=== PATIENT | female | born 1970 | race Caucasian/White ===

== ENCOUNTER 2017-05-11 09:57 | Emergency (ER) | payer SELFPAY ==
[2017-05-11 10:10] VITALS: BP 131/91
--- NOTE | 2017-05-11 11:16 | CR ---
Right humerus: Two views of the right humerus were obtained. Comparison: No previous humerus exam. No fracture or other abnormality is seen. Impression: 1. No abnormality is seen on two-view right humerus study. Diagnostic code #1
--- NOTE | 2017-05-11 11:22 | CR ---
Right shoulder: Single Y scapular view was obtained. No dislocation is seen. No fracture or other abnormality is seen. Impression: 1. Unremarkable Y scapular view. Diagnostic code #1
[2017-05-11] MEDS ORDERED: Ketorolac 60 MG/2 ML SDV IM ONE (11:28)
--- NOTE | 2017-05-11 11:40 | EDM.PDOC ---
ED HPI GENERAL MEDICAL PROBLEM - General Chief Complaint: Upper Extremity Injury/Pain Stated Complaint: ARM INJURY Time Seen by Provider: 05/11/17 10:55 Source of Information: Reports: Patient History Limitations: Reports: No Limitations - History of Present Illness INITIAL COMMENTS - FREE TEXT/NARRATIVE: 46-year-old female presents for evaluation and treatment of right arm pain. Patient reports 2 days ago she slipped on some ice. She states that her arm went back behind her. She states that her leg went to her side. She reports that since the fall she has been walking but reports pain to her right shoulder , right humerus, neck and back. She does have chronic neck and back pain. No numbness or tingling to the arm. Reports significant pain to the arm. States that she is having trouble sleeping due to the pain. She has been taking Tylenol and Motrin with no relief. Patient is left-handed. Patient denies hitting her head. No syncope. Duration: Day(s): (2) Location: Reports: Upper Extremity, Right Right Upper Arm Pain Score (Numeric/FACES): 9 - Related Data Allergies Allergy/AdvReac Type Severity Reaction Status Date / Time No Known Allergies Allergy Verified 05/11/17 10:10 Home Meds: Home Meds Ibuprofen [IJD: Ibuprofen] 600 mg PO Q4H PRN #0 tablet 11/10/15 [Rx] Ibuprofen 600 mg PO Q6HR PRN #20 tablet 05/11/17 [Rx] Orphenadrine [Norflex] 100 mg PO BID PRN #20 tab.er 05/11/17 [Rx] Past Medical History - Past Health History Medical/Surgical History: Denies Medical/Surgical History Genitourinary History: Reports: Other (See Below) Other Genitourinary History: bladder lift with mesh 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 Social & Family History - Family History Family Medical History: Noncontributory Endocrine/Metabolic: Reports: Diabetes, type II Oncologic: Reports: Breast, Colon, Uterine - Tobacco Use Smoking Status *Q: Never Smoker Second Hand Smoke Exposure: Yes - Caffeine Use Caffeine Use: Reports: Coffee - Recreational Drug Use Recreational Drug Use: Yes Drug Use in Last 12 Months: No Recreational Drug Last Use: 20 years ago - Living Situation & Occupation Living situation: Reports: Single, Other Occupation: Unemployed Review of Systems - Review of Systems Review Of Systems: See Below Musculoskeletal: Reports: Neck Pain, Shoulder Pain (right ), Arm Pain (right), Back Pain Neurological: Denies: Numbness, Syncope, Tingling ED EXAM, GENERAL - Physical Exam Exam: See Below Exam Limited By: No Limitations General Appearance: Alert, WD/WN, No Apparent Distress, Obese Eye Exam: Bilateral Eye: Normal Inspection Nose: Normal Inspection Throat/Mouth: Normal Inspection, Normal Voice, No Airway Compromise Head: Atraumatic, Normocephalic Neck: Normal Inspection, Supple, Full Range of Motion, Tender Midline Respiratory/Chest: No Respiratory Distress, Lungs Clear, Normal Breath Sounds Cardiovascular: Normal Peripheral Pulses, Regular Rate, Rhythm, No Murmur Peripheral Pulses: 2+: Radial (L), Radial (R), Dorsalis Pedis (L), Dorsalis Pedis (R) Back Exam: Normal Inspection, Vertebral Tenderness (reports tenderness to palpation along the entire spine) Extremities: Normal Inspection, Normal Capillary Refill, Limited Range of Motion (unable to move right shoulder due to pain), Other (reports tenderness to palpation to the right proximal humerus, right shoulder, right scapula and right clavicle; no obvious deformities appreciated) Neurological: Alert, Oriented, Normal Cognition Psychiatric: Normal Affect, Normal Mood Skin Exam: Warm, Dry, Normal Color. No: Ecchymosis, Erythema Course - Vital Signs Last Recorded V/S: Last Vital Signs Temp 35.6 C 05/11/17 10:03 Pulse 100 05/11/17 10:03 Resp 18 05/11/17 10:03 BP 131/91 H 05/11/17 10:03 Pulse Ox 97 05/11/17 10:03 - Orders/Labs/Meds Meds: Medications Discontinued Medications Generic Name Dose Route Start Last Admin Trade Name Freq PRN Reason Stop Dose Admin Ketorolac Tromethamine 60 mg 05/11/17 11:28 05/11/17 11:32 Toradol IM 05/11/17 11:29 60 mg ONETIME ONE Administration - Radiology Interpretation Free Text/Narrative:: Cervical spine: AP, lateral, odontoid in swimmers views of the cervical spine were obtained. Disc space narrowing is noted at C5-C6 with posterior spurring and large anterior osteophytes. Lesser disc space narrowing is noted at C6-C7. Degenerative spurring is noted within the uncovertebral joints at C5-C6 on the left side and at C6-C7 on the right side. Vertebral body heights are maintained. No discrete fracture or other abnormality is appreciated. Impression: 1. Degenerative change as noted above. Nothing acute is appreciated on 4 view cervical spine study. Right humerus: Two views of the right humerus were obtained. Comparison: No previous humerus exam. No fracture or other abnormality is seen. Impression: 1. No abnormality is seen on two-view right humerus study. Right shoulder: Single Y scapular view was obtained. No dislocation is seen. No fracture or other abnormality is seen. Impression: 1. Unremarkable Y scapular view. - Re-Assessments/Exams Free Text/Narrative Re-Assessment/Exam: 05/11/17 13:00 I reviewed the xray results with the patient. I believe this is just soft tissue injury. Will give norflex and ibuprofen for pain. Reviewed previous ER records she has been seen on multiple occasions for low back pain and has had MRI. No etiology found. Will discharge home at this time. Discharge instructions as documented. Departure - Departure Time of Disposition: 13:03 Disposition: Home, Self-Care 01 Condition: Fair Clinical Impression: Chronic back pain, Fall, Arm pain, right - Discharge Information Prescriptions: Ibuprofen 600 mg PO Q6HR PRN #20 tablet PRN Reason: Pain Orphenadrine [Norflex] 100 mg PO BID PRN #20 tab.er PRN Reason: Muscle Spasm Instructions: Shoulder Pain Referrals: Ingrid Conway PA-C [Primary Care Provider] - Forms: ED Department Discharge Additional Instructions: Norflex 1 tablet twice a day as needed for muscle spasm. This medication may make you drowsy. Do not drive or operative machinery until you know how this medication affects you. Ibuprofen 1 tablet every 6 hours as needed for pain. Follow up with your primary care provider this week for a recheck. Continue use ice, heat and icy hot as needed. keep the Arm in the shoulder sling. Remove the arm from the sling 3 or 4 times a day and perform pendulum arm circles to prevent a frozen shoulder. please return to the ER if your symptoms change or worsen.
--- NOTE | 2017-05-11 13:04 | CR ---
Cervical spine: AP, lateral, odontoid and swimmer's views of the cervical spine were obtained. Disc space narrowing is noted at C5-C6 with posterior spurring and large anterior osteophytes. Lesser disc space narrowing is noted at C6-C7. Degenerative spurring is noted within the uncovertebral joints at C5-C6 on the left side and at C6-C7 on the right side. Vertebral body heights are maintained. No discrete fracture or other abnormality is appreciated. Impression: 1. Degenerative change as noted above. Nothing acute is appreciated on four-view cervical spine study. Diagnostic code #2
== END 2017-05-11 13:15 | disposition home or self-care (01) ==
LOC: JD.ED 09:57
DX: M25.511 Pain in right shoulder (principal); M54.9 Dorsalgia, unspecified; G89.29 Other chronic pain; W00.0XXA Fall on same level due to ice and snow, initial encounter
CPT/HCPCS: 72040; 73020; 73060; 96372; 99284; J1885; 99283

== ENCOUNTER 2018-08-26 11:40 | Emergency (ER) | payer MEDICAID ==
[2018-08-26 12:01] VITALS: BP 142/87
[2018-08-26] MEDS ORDERED: Sodium Chloride 0.9% 10 ML Syringe FLUSH PRN (12:07)
[2018-08-26] MEDS ORDERED: Sodium Chloride 0.9% 1,000 ML IV SCH (12:15)
--- NOTE | 2018-08-26 12:15 | EDM.PDOC ---
ED HPI GENERAL MEDICAL PROBLEM - General Chief Complaint: Respiratory Problem Stated Complaint: hard time breathing, coughing, pain in right leg Time Seen by Provider: 08/26/18 11:55 Source of Information: Reports: Patient History Limitations: Reports: No Limitations - History of Present Illness INITIAL COMMENTS - FREE TEXT/NARRATIVE: Patient is a 47-year-old female presents ED complaining of anterior chest discomfort worse with coughing or taking a deep breath. States over the past week she's had a productive cough, sinus congestion, runny nose, with postnasal drip. States a coworker has had cold-like symptoms for the past 2 weeks. Patient states her symptoms are not improved since being evaluated this past Sunday at the walk-in clinic. She was instructed to take Mucinex and DayQuil with minimal relief. She states this morning she developed a cramp to the right calf. With palpation she was able to feel a lump in the back of her calf that improved with gentle massage. She has no significant complaints at this time. No increased swelling to the calf. No redness present. No difficulties with walking. She has no history of PE or DVT. She states that time she's felt feverish. She awoke last night with chills and had saturated sheets. She is concerned she may have some heart issues since there is first-degree relatives with heart disease requiring surgery. She was able to walk in on her own accord. Vital signs are stable. SPO2 normal. Past medical history includes type 2 diabetes. Anxiety Current medications include metformin 500 mg one tab twice a day. Currently on lorazepam 1 mg by mouth daily. She is on no control. Surgical history as documented. She does not smoke. Denies any alcohol usage. Denies any drug use as well. Chest Pain Score (Numeric/FACES): 6 - Related Data Allergies Allergy/AdvReac Type Severity Reaction Status Date / Time No Known Allergies Allergy Verified 08/26/18 11:50 Home Meds: Home Meds metFORMIN [Glucophage] 500 mg PO BIDMEALS 02/27/18 [History] Albuterol Sulfate [Albuterol Sulfate Hfa] 1 - 2 puff IH QID PRN #1 hfa.aer.ad [Rx] Benzonatate [Tessalon Perle] 100 mg PO BID PRN #16 capsule 08/26/18 [Rx] LORazepam 1 mg PO DAILY 08/26/18 [History] Past Medical History - Past Health History Medical/Surgical History: Denies Medical/Surgical History HEENT History: Reports: None Cardiovascular History: Reports: None Respiratory History: Reports: None Gastrointestinal History: Reports: Other (See Below) Other Gastrointestinal History: multiple surgeries Genitourinary History: Reports: Other (See Below) Other Genitourinary History: bladder lift with mesh 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: , Spontaneous Musculoskeletal History: Reports: Back Pain, Chronic Neurological History: Reports: Migraines, Speech Problems Psychiatric History: Reports: Anxiety, Learning Disability Endocrine/Metabolic History: Reports: Diabetes, Type II, Hypothyroidism, Obesity /BMI 30+ Hematologic History: Reports: None Immunologic History: Reports: None Oncologic (Cancer) History: Reports: None Dermatologic History: Reports: Other (See Below) Other Dermatologic History: herpes - Infectious Disease History Infectious Disease History: Reports: Herpes - Past Surgical History HEENT Surgical History: Reports: Oral Surgery GI Surgical History: Reports: Other (See Below) Female Surgical History: Reports: D&C, Hysterectomy, Tubal Ligation, Other ( See Below) Other Female Surgeries/Procedures: mass in uterous Social & Family History - Family History Family Medical History: Noncontributory Cardiac: Reports: High Cholesterol, Hypertension Endocrine/Metabolic: Reports: Diabetes, type II Oncologic: Reports: Breast, Colon, Uterine - Tobacco Use Smoking Status *Q: Never Smoker Second Hand Smoke Exposure: No - Caffeine Use Caffeine Use: Reports: Soda - Recreational Drug Use Recreational Drug Use: No - Living Situation & Occupation Living situation: Reports: (), with Family 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 Denies: Claudication, Dyspnea on Exertion , Orthopnea, Palpitations, PND, Syncope ED EXAM, GENERAL - Physical Exam Exam: See Below Exam Limited By: No Limitations General Appearance: Alert, WD/WN, No Apparent Distress Eye Exam: Bilateral Eye: PERRL Ears: Hearing Grossly Normal Nose: Normal Inspection Throat/Mouth: Normal Voice Head: Atraumatic, Normocephalic Neck: Normal Inspection, Supple Respiratory/Chest: No Respiratory Distress, Lungs Clear, Normal Breath Sounds, No Accessory Muscle Use, Chest Non-Tender Cardiovascular: Normal Peripheral Pulses, Regular Rate, Rhythm, No Murmur Peripheral Pulses: 2+: Radial (L), Radial (R), Posterior Tibial (L), Posterior Tibial (R) GI/Abdominal: Normal Bowel Sounds, Soft, Non-Tender, No Organomegaly, No Distention Extremities: Normal Inspection, Normal Range of Motion, Non-Tender, No Pedal Edema, Other (no swelling to lower extremities.). No: Joint Swelling, Leg Pain (with palpation), Limited Range of Motion, Increased Warmth, Redness Neurological: Alert, Oriented, CN II-XII Intact, Normal Cognition, No Motor/ Sensory Deficits Psychiatric: Normal Affect, Normal Mood Skin Exam: Warm, Dry, Intact, Normal Color, No Rash Course - Vital Signs Last Recorded V/S: Last Vital Signs Temp 98.7 F 08/26/18 11:52 Pulse 95 08/26/18 11:52 Resp 18 08/26/18 11:52 BP 142/87 H 08/26/18 11:52 Pulse Ox 100 08/26/18 12:50 - Orders/Labs/Meds Orders: Active Orders 24 hr Category Date Time Status EKG Documentation Completion [RC] STAT Care 08/26/18 12:07 Active Peripheral IV Care [RC] . DIRECTED Care 08/26/18 12:08 Active RT Aerosol Therapy [RC] ASDIRECTED Care 08/26/18 12:50 Active Peripheral IV Insertion Adult [OM.PC] Routine Oth 08/26/18 12:07 Ordered Labs: Laboratory Tests 08/26/18 08/26/18 08/26/18 Range/Units 12:10 12:10 12:10 WBC 7.26 (3.98-10.04) K/mm3 RBC 4.83 (3.98-5.22) M/mm3 Hgb 15.6 (11.2-15.7) gm/L Hct 45.6 H (34.1-44.9) % MCV 94.4 (79.4-94.8) fl MCH 32.3 H (25.6-32.2) pg MCHC 34.2 (32.2-35.5) g/dl RDW Std Deviation 43.8 (36.4-46.3) fL Plt Count 191 (182-369) K/mm3 MPV 10.4 (9.4-12.3) fl Neutrophils % (Manual) 69 H (40-60) % Band Neutrophils % 1 (0-10) % Lymphocytes % (Manual) 23 (20-40) % Atypical Lymphs % 0 % Monocytes % (Manual) 4 (2-10) % Eosinophils % (Manual) 3 (0.7-5.8) % Basophils % (Manual) 0 L (0.1-1.2) Platelet Estimate Adequate Plt Morphology Comment Normal RBC Morph Comment Normal PT 10.2 (9.5-12.1) SECONDS INR 0.93 APTT 27 (24-31) SECONDS Sodium 136 (136-145) mEq/L Potassium 3.8 (3.5-5.1) mEq/L Chloride 101 (98-107) mEq/L Carbon Dioxide 26 (21-32) mEq/L Anion Gap 12.8 (5-15) BUN 6 L (7-18) mg/dL Creatinine 1.0 (0.55-1.02) mg/dL Est Cr Clr Drug Dosing 55.01 mL/min Estimated GFR (MDRD) 59 (>60) mL/min BUN/Creatinine Ratio 6.0 L (14-18) Glucose 142 H (74-106) mg/dL Calcium 8.9 (8.5-10.1) mg/dL Total Bilirubin 0.5 (0.2-1.0) mg/dL AST 51 H (15-37) U/L ALT 53 (14-59) U/L Alkaline Phosphatase 110 (46-116) U/L Troponin I < 0.017 (0.00-0.056) ng/mL C-Reactive Protein 4.8 H* (<1.0) mg/dL Total Protein 8.4 H (6.4-8.2) g/dl Albumin 3.5 (3.4-5.0) g/dl Globulin 4.9 gm/dL Albumin/Globulin Ratio 0.7 L (1-2) Meds: Medications Discontinued Medications Generic Name Dose Route Start Last Admin Trade Name Freq PRN Reason Stop Dose Admin Albuterol 2.5 mg 08/26/18 12:50 08/26/18 13:09 Proventil Neb Soln NEB 08/26/18 12:51 2.5 mg ONETIME ONE Administration Sodium Chloride 1,000 mls @ 250 mls/hr 08/26/18 12:15 08/26/18 12:21 Normal Saline IV 250 mls/hr ASDIRECTED IESHA Administration Sodium Chloride 10 ml 08/26/18 12:07 08/26/18 12:19 Saline Flush FLUSH 10 ml ASDIRECTED PRN Administration Keep Vein Open - Re-Assessments/Exams Free Text/Narrative Re-Assessment/Exam: IV established with an estimated 50 mL per hour. Initial labs and studies will include: CBC, chem 14, CRP, clicks is comfortable troponin, chest x-ray two-view , and EKG. Patient's had a hysterectomy thus hCG not obtain. PERC rule negative. O criteria. No need for further workup, as <2% chance of PE. 08/26/18 12:48 EKG sinus rhythm at a rate [address] changes noted. Chest x-ray reviewed Dr. Donovan with no acute findings. Final interpretation pending. Ordered albuterol neb treatment. 08/26/18 13:03 Labs reviewed: CBC essentially normal. Sodium potassium normal. EKG 12.8. Creatinine 1.0. Glucose 1.2. AST mildly elevated 51. Troponin normal. CRP 4.8 suggesting viral. 1303 Reassessment, symptoms have improved with the above therapy. Return precautions discussed with the patient. Discharge instructions as documented. Departure - Departure Time of Disposition: 13:26 Disposition: Home, Self-Care 01 Condition: Good Clinical Impression: Bronchitis - Discharge Information Prescriptions: Albuterol Sulfate [Albuterol Sulfate Hfa] 1 - 2 puff IH QID PRN #1 hfa.aer.ad PRN Reason: Shortness Of Breath Benzonatate [Tessalon Perle] 100 mg PO BID PRN #16 capsule PRN Reason: Cough Instructions: Shortness of Breath, Adult, [id number], Upper Respiratory Infection, Adult, Acute Bronchitis, Adult, [id number] Referrals: Nadira Vogel PA-C [Primary Care Provider] - Forms: ED Department Discharge, ED Return to Work/School Form Additional Instructions: As discussed you have a viral upper respiratory infection. Treatment will consist of symptomatic care including: Mucinex 600 mg, one tab twice daily for the next 10 days, albuterol inhaler 1-2 puffs every 4 hours when necessary for shortness of breath, Tessalon Perles one tab twice a day for cough, drink plenty of fluids, ensure adequate rest, follow-up with PCP in the next 3-5 days if symptoms persist and have not improved. Return to the ED if you develop any new or worsening symptoms. - My Orders Last 24 Hours: My Active Orders 08/26/18 12:07 EKG Documentation Completion [RC] STAT Peripheral IV Insertion Adult [OM.PC] Routine 08/26/18 12:08 Peripheral IV Care [RC] . DIRECTED 08/26/18 12:50 RT Aerosol Therapy [RC] ASDIRECTED - Assessment/Plan Last 24 Hours: My Active Orders 08/26/18 12:07 EKG Documentation Completion [RC] STAT Peripheral IV Insertion Adult [OM.PC] Routine 08/26/18 12:08 Peripheral IV Care [RC] . DIRECTED 08/26/18 12:50 RT Aerosol Therapy [RC] ASDIRECTED
[2018-08-26] MEDS ORDERED: Albuterol 0.083% 2.5 MG/3 ML Neb Soln NEB ONE (12:50)
--- NOTE | 2018-08-26 13:30 | CR ---
Chest: Two views of the chest were obtained. Comparison: No prior chest imaging. Findings: Heart size and mediastinum are normal. Lungs are clear. Bony structures are unremarkable for the patient's age. Impression: 1. Nothing acute is seen on two-view chest x-ray. Diagnostic code #1
== END 2018-08-26 13:58 | disposition home or self-care (01) ==
LOC: JD.ED 11:40
DX: J40 Bronchitis, not specified as acute or chronic (principal); E11.9 Type 2 diabetes mellitus without complications; E66.9 Obesity, unspecified; Z98.51 Tubal ligation status; Z90.710 Acquired absence of both cervix and uterus; Z79.84 Long term (current) use of oral hypoglycemic drugs
CPT/HCPCS: 36415; 71046; 80053; 84484; 85007; 85027; 85610; 85730; 86140; 93005; 94640; 96360; 99284; J7040; 93010; 99283

== ENCOUNTER 2019-01-17 09:15 | Emergency (ER) | payer SELFPAY ==
[2019-01-17 09:49] VITALS: BP 137/80; PULSE 78
[2019-01-17] MEDS ORDERED: FLU Vacc QS2019-20(6MOS+)/PF 60 MCG/0.5 ML SYRINGE IM ONE (10:00)
[2019-01-17] MEDS ORDERED: Sodium Chloride 0.9% 1,000 ML IV SCH (11:30)
[2019-01-17] MEDS ORDERED: Ketorolac 30 MG/ML SDV IVPUSH SCH (11:30)
--- NOTE | 2019-01-17 11:32 | EDM.PDOC ---
ED HPI GENERAL MEDICAL PROBLEM - General Chief Complaint: Neurological Problem Stated Complaint: DIZZY FOR 1 MONTH Time Seen by Provider: 01/17/19 11:15 Source of Information: Reports: Patient History Limitations: Reports: No Limitations - History of Present Illness INITIAL COMMENTS - FREE TEXT/NARRATIVE: 48-year-old female presents to the ED for evaluation of persistent vertigo symptoms worse on the left side for the last month. She reports that initially she lies down flat or rolls to the left side or walks or turns to the left side she developed vertigo symptoms that last 20-30 seconds. They go away when she holds still or sits back up in the rectum. She's had to sleep sitting up the last month. Spent on Antivert for the last month with no relief of the symptoms. She has never not had nausea or vomiting precipitated by the vertigo. She feels her vision is swimming at times and finds difficult time reading on computer. Other complaints are diffuse weakness and muscular pain particularly in the distribution of her upper arms and thighs. Low back pain as well. She is a diabetic diagnosed 4 months ago. Currently on metformin 500 mg once daily. Only other problem is intermittent positive asthma. She has pain in the distribution of the ulnar nerve bilaterally particularly in the right side. Diffuse cervical neck pain. Chronic low back pain. She has to pinched nerves in her lower back from disc herniation. Primary care provider is Angelian Vogel. Onset: Gradual Onset Date: 12/18/18 Duration: Week(s):, Chronic, Getting Worse Location: Reports: Neck, Back, Upper Extremity, Left, Upper Extremity, Right, Lower Extremity, Left, Lower Extremity, Right, Other (Generalized myalgia. Vertigo worsened when she looks to the left or lies down.) Quality: Reports: Other Severity: Moderate (Biggest problem is vertigo.) Improves with: Reports: None (Antivert for the last month has not been helping. She has to sleep sitting up.) Worsens with: Reports: Other (Worsens when she lies down or looks to the left. She has to hold onto the wall to walk) Context: Denies: Activity, Exercise, Lifting, Sick Contact, Trauma, Other Associated Symptoms: Reports: Malaise. Denies: No Other Symptoms, Confusion, Chest Pain, Cough, cough w sputum, Diaphoresis, Fever/Chills, Headaches, Loss of Appetite, Nausea/Vomiting, Rash, Seizure, Shortness of Breath, Syncope, Weakness Treatments MANAGER INTEGRATION: Reports: Other (see below) (Antivert almost every 4 hours for the last several weeks) Neck Pain Score (Numeric/FACES): 9 - Related Data Allergies Allergy/AdvReac Type Severity Reaction Status Date / Time No Known Allergies Allergy Verified 01/17/19 09:49 Home Meds: Home Meds metFORMIN [Glucophage] 500 mg PO DAILY 02/27/18 [History] Albuterol Sulfate [Albuterol Sulfate Hfa] 1 - 2 puff IH QID PRN #1 hfa.aer.ad [Rx] LORazepam 1 mg PO DAILY 08/26/18 [History] Naproxen [Naprosyn] 500 mg PO Q12HR PRN #20 tab 11/29/18 [Rx] Diclofenac Sodium [Voltaren] 75 mg PO BIDMEALS #30 tab.cr 01/17/19 [Rx] Meclizine [Antivert] 25 mg PO Q4HR PRN 01/17/19 [History] Metoclopramide HCl [Reglan] 5 mg PO BID #20 tablet 01/17/19 [Rx] Past Medical History - Past Health History Medical/Surgical History: Denies Medical/Surgical History HEENT History: Reports: None Cardiovascular History: Reports: None Respiratory History: Reports: None Gastrointestinal History: Reports: Other (See Below) Other Gastrointestinal History: multiple surgeries Genitourinary History: Reports: Other (See Below) Other Genitourinary History: bladder lift with mesh [employer] 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: , Spontaneous Musculoskeletal History: Reports: Arthritis, Back Pain, Chronic Neurological History: Reports: Migraines, Speech Problems Psychiatric History: Reports: Anxiety, Learning Disability Endocrine/Metabolic History: Reports: Diabetes, Type II, Obesity/BMI 30+ Hematologic History: Reports: None Immunologic History: Reports: None Oncologic (Cancer) History: Reports: None Dermatologic History: Reports: Other (See Below) Other Dermatologic History: herpes - Infectious Disease History Infectious Disease History: Reports: Herpes - Past Surgical History Head Surgeries/Procedures: Reports: None HEENT Surgical History: Reports: Oral Surgery Female Surgical History: Reports: D&C, Hysterectomy, Tubal Ligation, Other ( See Below) Other Female Surgeries/Procedures: mass in uterus Social & Family History - Family History Family Medical History: Noncontributory Cardiac: Reports: High Cholesterol, Hypertension Endocrine/Metabolic: Reports: Diabetes, type II Oncologic: Reports: Breast, Colon, Uterine - Tobacco Use Smoking Status *Q: Never Smoker - Caffeine Use Caffeine Use: Reports: Coffee, Soda - Recreational Drug Use Recreational Drug Use: No - Living Situation & Occupation Living situation: Reports: (), with Family 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 Denies: Fever, Chills HEENT: Reports: Hearing Loss (People have been telling her that she is hard of hearing but she doesn't appreciate this. She has no ), Vertigo (Especially when she lies down or looks to the left side.), Other (No tinnitus.). Denies: No Symptoms, Contact Lenses, Dental Pain, Ear Discharge, Ear Pain, Eye Discharge, Eye Pain, Glasses, Nosebleed Respiratory: Reports: No Symptoms Cardiovascular: Reports: No Symptoms Endocrine: Reports: No Symptoms GI/Abdominal: Reports: No Symptoms : Reports: No Symptoms Musculoskeletal: Reports: Neck Pain, Arm Pain, Back Pain, Hand Pain, Leg Pain, Joint Pain, Muscle Pain. Denies: Joint Swelling Skin: Reports: No Symptoms Neurological: Reports: Dizziness (Chronic vertigo for over a month.), Difficulty Walking. Denies: Paresthesia, Pre-Existing Deficit, Seizure, Syncope , Tingling, Tremors, Trouble Speaking, Weakness, Change in Speech Psychiatric: Reports: No Symptoms Hematologic/Lymphatic: Reports: No Symptoms Immunologic: Reports: No Symptoms ED EXAM, DIZZINESS - Physical Exam Exam: See Below Exam Limited By: No Limitations General Appearance: Alert, WD/WN, Anxious, Mild Distress, Other (Vital signs show temperature 36.4. Pulse 78 sinus respiratory 16 BP 137/80 sats are 100% on room air.) Eye Exam: Bilateral Eye: Normal Inspection, PERRL Ears: Normal External Exam, Normal Canal, Hearing Grossly Normal, Normal TMs Throat/Mouth: Normal Inspection, Normal Lips, Normal Oropharynx, Other Head Exam: Atraumatic, Normocephalic Vertigo: worsens with head to L (Dental caries starting on the buccal surface of the right lower first molar tooth.), reproducible, constant (She sits up almost immediately to relieve the symptoms.) Neck: Normal Inspection, Limited Range of Motion. No: Lymphadenopathy (L), Lymphadenopathy (R) Respiratory/Chest: No Respiratory Distress (Crepitus on lateral rotation.), Lungs Clear, Normal Breath Sounds, Chest Non-Tender Cardiovascular: Normal Peripheral Pulses, Regular Rate, Rhythm, No Edema, No Gallop, No Murmur, No Rub GI/Abdominal: Normal Bowel Sounds, Soft, Non-Tender, No Organomegaly, No Abnormal Bruit, No Mass, Pelvis Stable Neurological: Alert, Normal Mood/Affect, Normal Dorsiflexion, CN II-XII Intact, Normal Plantar Flexion, Normal Gait, Normal Reflexes, No Motor/Sensory Deficits , Oriented x 3, Other (Normal rapid alternate movements. Normal finger to nose exam normal [id number] exam. No pronator drift.) DTR: 1+: Achilles (R), Achilles (L), 2+: Bicep (R), Bicep (L), Patella (R), Patella (L) Back Exam: Normal Inspection, Full Range of Motion. No: CVA Tenderness (L), CVA Tenderness (R) Extremities: Normal Inspection, Normal Range of Motion, Non-Tender Psychiatric: Anxious Skin Exam: Warm (Mild), Dry, Intact, Normal Color, No Rash Course - Vital Signs Last Recorded V/S: Last Vital Signs Temp 36.4 C 01/17/19 09:46 Pulse 78 01/17/19 09:46 Resp 16 01/17/19 09:46 BP 137/80 01/17/19 09:46 Pulse Ox 100 01/17/19 09:46 - Orders/Labs/Meds Orders: Active Orders 24 hr Category Date Time Status Influenza Vaccine Charge [RC] .DISCHARGE Care 01/17/19 09:53 Active Labs: Laboratory Tests 01/17/19 01/17/19 01/17/19 Range/Units 10:28 11:45 11:45 WBC 6.56 (3.98-10.04) K/mm3 RBC 4.45 (3.98-5.22) M/mm3 Hgb 14.7 (11.2-15.7) gm/dl Hct 42.7 (34.1-44.9) % MCV 96.0 H (79.4-94.8) fl MCH 33.0 H (25.6-32.2) pg MCHC 34.4 (32.2-35.5) g/dl RDW Std Deviation 43.3 (36.4-46.3) fL Plt Count 243 (182-369) K/mm3 MPV 10.1 (9.4-12.3) fl Neut % (Auto) 63.6 (34.0-71.1) % Lymph % (Auto) 25.5 (19.3-51.7) % [place] % (Auto) 7.9 (4.7-12.5) % Eos % (Auto) 2.7 (0.7-5.8) Baso % (Auto) 0.3 (0.1-1.2) % Neut # (Auto) 4.17 (1.56-6.13) K/mm3 Lymph # (Auto) 1.67 (1.18-3.74) K/mm3 [place] # (Auto) 0.52 H (0.24-0.36) K/mm3 Eos # (Auto) 0.18 (0.04-0.36) K/mm3 Baso # (Auto) 0.02 (0.01-0.08) K/mm3 ESR 19 (0-20) mm/hr Sodium (136-145) mEq/L Potassium (3.5-5.1) mEq/L Chloride (98-107) mEq/L Carbon Dioxide (21-32) mEq/L Anion Gap (5-15) BUN (7-18) mg/dL Creatinine (0.55-1.02) mg/dL Est Cr Clr Drug Dosing mL/min Estimated GFR (MDRD) (>60) mL/min BUN/Creatinine Ratio (14-18) Glucose (74-106) mg/dL POC Glucose 121 H (70-105) mg/dL Hemoglobin A1c (4.50-6.20) % Calcium (8.5-10.1) mg/dL Magnesium (1.8-2.4) mg/dl Total Bilirubin (0.2-1.0) mg/dL AST (15-37) U/L ALT (14-59) U/L Alkaline Phosphatase (46-116) U/L Creatine Kinase (26-192) U/L C-Reactive Protein (<1.0) mg/dL Total Protein (6.4-8.2) g/dl Albumin (3.4-5.0) g/dl Globulin gm/dL Albumin/Globulin Ratio (1-2) TSH 3rd Generation (0.358-3.74) uIU/mL 01/17/19 01/17/19 Range/Units 11:45 11:45 WBC (3.98-10.04) K/mm3 RBC (3.98-5.22) M/mm3 Hgb (11.2-15.7) gm/dl Hct (34.1-44.9) % MCV (79.4-94.8) fl MCH (25.6-32.2) pg MCHC (32.2-35.5) g/dl RDW Std Deviation (36.4-46.3) fL Plt Count (182-369) K/mm3 MPV (9.4-12.3) fl Neut % (Auto) (34.0-71.1) % Lymph % (Auto) (19.3-51.7) % [place] % (Auto) (4.7-12.5) % Eos % (Auto) (0.7-5.8) Baso % (Auto) (0.1-1.2) % Neut # (Auto) (1.56-6.13) K/mm3 Lymph # (Auto) (1.18-3.74) K/mm3 [place] # (Auto) (0.24-0.36) K/mm3 Eos # (Auto) (0.04-0.36) K/mm3 Baso # (Auto) (0.01-0.08) K/mm3 ESR (0-20) mm/hr Sodium 134 L (136-145) mEq/L Potassium 4.2 (3.5-5.1) mEq/L Chloride 101 (98-107) mEq/L Carbon Dioxide 26 (21-32) mEq/L Anion Gap 11.2 (5-15) BUN 21 H (7-18) mg/dL Creatinine 0.9 (0.55-1.02) mg/dL Est Cr Clr Drug Dosing 60.46 mL/min Estimated GFR (MDRD) > 60 (>60) mL/min BUN/Creatinine Ratio 23.3 H (14-18) Glucose 114 H (74-106) mg/dL POC Glucose (70-105) mg/dL Hemoglobin A1c 6.10 (4.50-6.20) % Calcium 9.3 (8.5-10.1) mg/dL Magnesium 1.8 (1.8-2.4) mg/dl Total Bilirubin 0.6 (0.2-1.0) mg/dL AST 53 H (15-37) U/L ALT 75 H (14-59) U/L Alkaline Phosphatase 117 H (46-116) U/L Creatine Kinase 138 (26-192) U/L C-Reactive Protein 2.5 H* (<1.0) mg/dL Total Protein 7.9 (6.4-8.2) g/dl Albumin 3.5 (3.4-5.0) g/dl Globulin 4.4 gm/dL Albumin/Globulin Ratio 0.8 L (1-2) TSH 3rd Generation 3.413 (0.358-3.74) uIU/mL Meds: Medications Discontinued Medications Generic Name Dose Route Start Last Admin Trade Name Freq PRN Reason Stop Dose Admin Sodium Chloride 1,000 mls @ 150 mls/hr 01/17/19 11:30 01/17/19 11:49 Normal Saline IV 150 mls/hr ASDIRECTED IESHA Administration Influenza Virus Vaccine 1 each 01/17/19 09:53 Pharmacy To Dose - Influenza Vaccine IM 01/17/19 09:54 ONETIME ONE Influenza Virus Vaccine 60 mcg 01/17/19 10:00 01/17/19 10:29 Fluzone Quad [id number] Syringe IM 01/17/19 10:01 60 mcg .ONCE ONE Administration Ketorolac Tromethamine 30 mg 01/17/19 11:30 01/17/19 11:49 Toradol IVPUSH 30 mg ONETIME IESHA Administration Oxycodone/Acetaminophen 1 tab 01/17/19 13:02 01/17/19 13:39 Percocet 325-5 Mg PO 01/17/19 13:03 1 tab ONETIME ONE Administration - Radiology Interpretation Free Text/Narrative:: 48-year-old female presents the ED with a history of vertigo symptoms for the last month particular noted when she looks to the left side or lays down in bed. 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 She can predate this with any upper respiratory tract infections. Cranial nerves II-12 are intact. She perhaps is losing her hearing according to the rib reveals tenderness she is losing her hearing. Slight diagnosed with diabetes and is only on metformin 500 mg once daily indicating to me that her blood sugars were never very high. Some times changes in blood sugars can precipitate vertigo symptoms. I.e. a sudden drop of the very high blood sugar etc. Neuro exam is normal. Plan CT head will be done. This rules out any central nervous system lesion. Routine labs including a glycosylated protein to be done. Has recurrent chronic pain syndrome in her arms legs low back and neck portal 30 mg will be given intravenously. IV will be normal saline 150 mils per hour. - Re-Assessments/Exams Free Text/Narrative Re-Assessment/Exam: 01/17/19 12:27 CT of the brain reveals no abnormalities. Ventricles along with basal cisterns and sulci over the convexities appear normal with normal limits for the patient's age. No acute parenchymal densities are seen no mass effect. No evidence of intracranial hemorrhage. Asteroid sinuses are clear. No middle ear debris. 01/17/19 12:30 Labs reveal a normal white count at 6.56. Auto differential shows 63.6% neutrophils. Hemoglobin is 14.7 with hematocrit of 42.7. MCV is mildly elevated at 96.0. Platelet count 243,000. Sodium slightly low at 134 with potassium of 4.2. Chloride is 101 with a bicarbonate 26. Anion gap is normal at 11.2. BUN is 21 with a creatinine of 0.9. GFR is greater than 60. Glucose is 114. Hemoglobin A1c is 6.10. Calcium is 9.3 with a magnesium of 1.8. Total bilirubin is 0.6 AST is elevated at 53 with a nail to 75. Alk phosphatase is slightly elevated 117. Creatine phosphokinase is 138. C-reactive protein is 2.5. Total protein 7.9 with an albumin fraction of 3.5 and globulins at 4.4. TSH is 3.413. 01/17/19 13:02 going to have the patient stop her metformin for the next 3-4 weeks to see if her vertigo doesn't improve markedly. I will refer her to physical therapy for Maria Teresa's maneuvers. I'm going to start her on Reglan 5 mg twice daily once in the morning once before bed for suggest for 10 days to see if this will help the vertigo symptoms. Going to be placing her on Voltaren 75 mg twice daily as an anti-inflammatory to reduce some of her back and neck pain. She did receive 1 Percocet 5/325 mg tablet in the ED for pain relief before discharge. She will not be driving an automobile. She is to follow up with Nadira Rodriguez within the next 10 days. If she is not improved in regards to her vertigo symptoms she needs referral to ear nose and throat surgeon. Departure - Departure Time of Disposition: 13:03 Disposition: Home, Self-Care 01 Condition: Fair Clinical Impression: Cervicalgia of [id number] region, Vertigo Low back pain Qualifiers: Chronicity: chronic Back pain laterality: bilateral Sciatica presence: without sciatica Qualified Code(s): M54.5 - Low back pain - Discharge Information *PRESCRIPTION DRUG MONITORING PROGRAM REVIEWED*: Not Applicable *COPY OF PRESCRIPTION DRUG MONITORING REPORT IN PATIENT TONY: Not Applicable Prescriptions: Diclofenac Sodium [Voltaren] 75 mg PO BIDMEALS #30 tab.cr Metoclopramide HCl [Reglan] 5 mg PO BID #20 tablet Instructions: Vertigo, [id number] Referrals: Nadira Vogel PA-C [Primary Care Provider] - Forms: ED Department Discharge, ED Return to Work/School Form Additional Instructions: Evaluation the emergency room today in regards to persistent vertigo symptoms from the left ear that are worsened by lying down or turning to the left side. Symptoms of been present for over a month. I could find no problems with the ear on examination. CT of the brain also was within normal limits showing no sinus infection or tumor or mass effect. He normal CT of the brain. So also proved to be completely normal including thyroid function. I'm going to suggest use stop your metformin for the next 4 weeks since her blood sugars are very well controlled on 500 mg daily case the metformin is causing some of the current problems or so side effects. I'm going to suggest trying Reglan 5 mg first thing in the morning and again at supper time to try and bring the vertigo symptoms under better control this is only for 10 days as a trial of medicine either helps her does not. Similarly Voltaren, 75 mg twice daily morning and supper for the next 2 weeks to see if this will alleviate a good deal of your back and neck pain which is presumed to be due to degenerative arthritic changes. A trial medicine for 2 weeks. If it works well then it could be refilled. Suggest follow-up with Roxanne Vogel in 10-14 days time. If you vertigo is still present then you need a referral to ear nose and throat surgery. I will make a referral to physiotherapy to have something called Maria Teresa' s maneuvers carried out to see if we can improve the vertigo symptoms in this manner. They will hopefully contact you early next week to set up an appointment time. - My Orders Last 24 Hours: My Active Orders 01/17/19 09:53 Influenza Vaccine Charge [RC] .DISCHARGE - Assessment/Plan Last 24 Hours: My Active Orders 01/17/19 09:53 Influenza Vaccine Charge [RC] .DISCHARGE
--- NOTE | 2019-01-17 12:09 | CT ---
Head CT Technique: Multiple axial sections through the brain were obtained. Intravenous contrast was not utilized. Comparison: Previous head CT exam of 09/24/15. Findings: Ventricles along with basal cisterns and sulci over the convexities appear within normal limits for the patient's age. No abnormal parenchymal densities are seen. No evidence of intracranial hemorrhage. No midline shift or mass effect is seen. No acute calvarial abnormality is seen. Mastoid sinuses and visualized paranasal sinuses are clear. Impression: 1. Nothing acute is appreciated on noncontrast head CT study. Diagnostic code #1
[2019-01-17 12:11] LABS: HEMOGLOBIN A1C 6.1 % (4.50-6.20)
[2019-01-17] MEDS ORDERED: Acetaminophen/oxyCODONE 325-5 MG Tab PO ONE (13:02)
== END 2019-01-17 13:45 | disposition home or self-care (01) ==
LOC: JD.ED 09:15
DX: R42 Dizziness and giddiness (principal); M54.5 Low back pain; M54.2 Cervicalgia; E66.9 Obesity, unspecified; E11.9 Type 2 diabetes mellitus without complications; Z79.84 Long term (current) use of oral hypoglycemic drugs
CPT/HCPCS: 36415; 70450; 80053; 82550; 82962; 83036; 83735; 84443; 85025; 85652; 86140; 90471; 90686; 96361; 96374; 99284; A9270; J1885; J7040; G0008

== ENCOUNTER 2019-04-06 08:41 | Emergency (ER) | payer SELFPAY ==
[2019-04-06 08:55] VITALS: BP 165/75; PULSE 74
[2019-04-06] MEDS ORDERED: Acetaminophen/HYDROcodone 325-5 MG Tab PO ONE (09:06)
--- NOTE | 2019-04-06 09:34 | EDM.PDOC ---
ED HPI GENERAL MEDICAL PROBLEM - General Chief Complaint: Back Pain or Injury Stated Complaint: SLIPPED AND FELL Time Seen by Provider: 04/06/19 08:59 Source of Information: Reports: Patient History Limitations: Reports: No Limitations - History of Present Illness INITIAL COMMENTS - FREE TEXT/NARRATIVE: The patient presents with tail bone pain. She slipped and fell getting out of the shower and landed on her buttocks. She has pain to her tail bone now. She did not hit her head or hurt her neck. She has no other pain. She does have pain with sitting and moving. Onset: Sudden Duration: Day(s): (Last night) Location: Reports: Other (Coccyx) Quality: Reports: Sharp Severity: Severe Improves with: Reports: Immobilization Worsens with: Reports: Movement Context: Reports: Trauma (Fall) Associated Symptoms: Reports: No Other Symptoms Lower Back Pain Score (Numeric/FACES): 10 - Related Data Allergies Allergy/AdvReac Type Severity Reaction Status Date / Time No Known Allergies Allergy Verified 04/06/19 08:56 Home Meds: Home Meds Albuterol Sulfate [Albuterol Sulfate Hfa] 1 - 2 puff IH QID PRN #1 hfa.[email or web address] [Rx] LORazepam 1 mg PO DAILY 08/26/18 [History] Hydrocodone/Acetaminophen [Hydrocodon-Acetaminophen 5-325] 1 - 2 each PO Q6HR PRN #20 tablet 04/06/19 [Rx] Past Medical History - Past Health History Medical/Surgical History: Denies Medical/Surgical History HEENT History: Reports: None Cardiovascular History: Reports: None Respiratory History: Reports: None Gastrointestinal History: Reports: Other (See Below) Other Gastrointestinal History: multiple surgeries Genitourinary History: Reports: Other (See Below) Other Genitourinary History: bladder lift with mesh 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: , 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 Musculoskeletal History: Reports: Arthritis, Back Pain, Chronic Neurological History: Reports: Migraines, Speech Problems Psychiatric History: Reports: Anxiety, Learning Disability Endocrine/Metabolic History: Reports: Diabetes, Type II, Obesity/BMI 30+ Hematologic History: Reports: None Immunologic History: Reports: None Oncologic (Cancer) History: Reports: None Dermatologic History: Reports: Other (See Below) Other Dermatologic History: herpes - Infectious Disease History Infectious Disease History: Reports: Herpes - Past Surgical History Head Surgeries/Procedures: Reports: None HEENT Surgical History: Reports: Oral Surgery Female Surgical History: Reports: D&C, Hysterectomy, Tubal Ligation Social & Family History - Family History Family Medical History: Noncontributory Cardiac: Reports: High Cholesterol, Hypertension Endocrine/Metabolic: Reports: Diabetes, type II Oncologic: Reports: Breast, Colon, Uterine - Tobacco Use Smoking Status *Q: Never Smoker - Caffeine Use Caffeine Use: Reports: Coffee, Soda - Recreational Drug Use Recreational Drug Use: No - Living Situation & Occupation Living situation: Reports: (), with Family 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[employer]) ED ROS GENERAL - Review of Systems Review Of Systems: See Below Constitutional: Reports: No Symptoms HEENT: Reports: No Symptoms Respiratory: Reports: No Symptoms Cardiovascular: Reports: No Symptoms Endocrine: Reports: No Symptoms GI/Abdominal: Reports: No Symptoms : Reports: No Symptoms Musculoskeletal: Reports: Other (Coccyx pain) ED EXAM,LOWER BACK PAIN/INJURY - Physical Exam Exam: See Below Exam Limited By: No Limitations General Appearance: Alert, No Apparent Distress Ears: Normal External Exam Nose: Normal Inspection Head: Atraumatic, Normocephalic Neck: Normal Inspection, Supple, Non-Tender Respiratory/Chest: No Respiratory Distress, Lungs Clear, Normal Breath Sounds Cardiovascular: Regular Rate, Rhythm, No Edema, No Murmur GI/Abdominal: Soft, Non-Tender, No Organomegaly, No Mass Back Exam: Other (Pain upon palpation to the sacrum and coccyx) Extremities: Normal Inspection Neurological: Alert, No Motor/Sensory Deficits, Oriented x 3 Course - Vital Signs Last Recorded V/S: Last Vital Signs Temp 97.4 F 04/06/19 08:53 Pulse 74 04/06/19 08:53 Resp 16 04/06/19 08:53 BP 165/75 H 04/06/19 08:53 Pulse Ox 100 04/06/19 08:53 - Orders/Labs/Meds Orders: Active Orders 24 hr Category Date Time Status Sacrum Coccyx Min 2V [CR] Stat Exams 04/06/19 09:07 Taken Meds: Medications Discontinued Medications Generic Name Dose Route Start Last Admin Trade Name Freq PRN Reason Stop Dose Admin Hydrocodone Bitart/Acetaminophen 2 tab 04/06/19 09:06 04/06/19 09:21 [place] 325-5 Mg PO 04/06/19 09:07 2 tab ONETIME ONE Administration - Re-Assessments/Exams Free Text/Narrative Re-Assessment/Exam: 04/06/19 09:33 I ordered hydrocodone and an x-ray of her sacrum and coccyx. 04/06/19 09:46 I do not see a fracture. I will give her something for pain. Departure - Departure Time of Disposition: 09:50 Disposition: Home, Self-Care 01 Condition: Good Clinical Impression: Fall Qualifiers: Encounter type: initial encounter Qualified Code(s): W19.XXXA - Unspecified fall, initial encounter Coccyx contusion Qualifiers: Encounter type: initial encounter Qualified Code(s): S30.0XXA - Contusion of lower back and pelvis, initial encounter - Discharge Information *PRESCRIPTION DRUG MONITORING PROGRAM REVIEWED*: No *COPY OF PRESCRIPTION DRUG MONITORING REPORT IN PATIENT TONY: No Prescriptions: Hydrocodone/Acetaminophen [Hydrocodon-Acetaminophen 5-325] 1 - 2 each PO Q6HR PRN #20 tablet PRN Reason: Pain Referrals: Nadira Vogel PA-C [Primary Care Provider] - 1 Week Forms: ED Department Discharge, ED Return to Work/School Form Additional Instructions: Ice the area that hurts for 15 minutes 3 times per day for 3 days. Take tylenol or motirn for pain. If that does not help, try the hydrocodone. Get a donut pillow or the half donut pillow to sit on. Follow up with your doctor within a week. Please return if you are worse. Sepsis Event Note - Evaluation Sepsis Screening Result: No Definite Risk - Focused Exam Vital Signs: Vital Signs Temp Pulse Resp BP Pulse Ox 04/06/19 08:53 97.4 F 74 16 165/75 H 100 Date Exam was Performed: 04/06/19 Time Exam was Performed: 09:45 - My Orders Last 24 Hours: My Active Orders 04/06/19 09:07 Sacrum Coccyx Min 2V [CR] Stat - Assessment/Plan Last 24 Hours: My Active Orders 04/06/19 09:07 Sacrum Coccyx Min 2V [CR] Stat
--- NOTE | 2019-04-07 09:17 | CR ---
Sacrum and coccyx: Three views of the sacrum and coccyx were obtained. Comparison: No previous sacrum or coccyx study is available. Disc space at L4-L5 and L5-S1 are preserved. Sacroiliac joints appear within normal limits. Sacral foramina are patent. No fracture or abnormal subluxation is seen. Impression: 1. Nothing acute is appreciated on three-view sacrum and coccyx exam. Diagnostic code #1 This report was dictated in [place] Standard Time
== END 2019-04-06 09:45 | disposition home or self-care (01) ==
LOC: JD.ED 08:41
DX: S30.0XXA Contusion of lower back and pelvis, initial encounter (principal); E11.9 Type 2 diabetes mellitus without complications; F41.9 Anxiety disorder, unspecified; E66.9 Obesity, unspecified; Z68.37 Body mass index [BMI] 37.0-37.9, adult; Z79.899 Other long term (current) drug therapy; W01.0XXA Fall on same level from slipping, tripping and stumbling without subsequent striking against object, initial encounter; Y93.89 Activity, other specified
CPT/HCPCS: 72220; 99283; A9270

== ENCOUNTER 2019-04-12 15:40 | Emergency (ER) | payer SELFPAY ==
[2019-04-12 16:00] VITALS: BP 170/151; PULSE 72
--- NOTE | 2019-04-12 16:53 | EDM.PDOC ---
ED HPI GENERAL MEDICAL PROBLEM - General Chief Complaint: Back Pain or Injury Stated Complaint: BACK PAIN Time Seen by Provider: 04/12/19 16:11 Source of Information: Reports: Patient, RN Notes Reviewed - History of Present Illness INITIAL COMMENTS - FREE TEXT/NARRATIVE: 48-year-old female comes in with sacral pain. He slipped and fell 1 week ago coming out of the shower landing on her tailbone. Evaluated here in the ED 6 days ago, x-rays done at that time did not show fracture. Need to have quite severe pain of the tailbone area. She states she cannot sit in a normal way, also difficult to lay flat, difficult to walk. A she did see Dr. Killian 34 days ago at the clinic. It is not clear if he was able to look at the x-rays taken here in the emergency department. Eights "he said she had a fracture" and was going to see her back in a few weeks for repeat x-rays. She has run out of her pain medication. She's been trying to take Tylenol and ibuprofen this last day or 2 and "that is not working". - Related Data Allergies Allergy/AdvReac Type Severity Reaction Status Date / Time No Known Allergies Allergy Verified 04/06/19 08:56 Home Meds: Home Meds Albuterol Sulfate [Albuterol Sulfate Hfa] 1 - 2 puff IH QID PRN #1 hfa.[email or web address].ad [Rx] LORazepam 1 mg PO DAILY 08/26/18 [History] Acetaminophen/HYDROcodone [[place] 325-5 MG] 1 tab PO Q8HR PRN #14 tablet [Rx] Naproxen [Naprosyn] 500 mg PO Q12HR #14 tab 04/12/19 [Rx] Past Medical History - Past Health History Medical/Surgical History: Denies Medical/Surgical History HEENT History: Reports: None Cardiovascular History: Reports: None Respiratory History: Reports: None Gastrointestinal History: Reports: Other (See Below) Other Gastrointestinal History: multiple surgeries Genitourinary History: Reports: Other (See Below) Other Genitourinary History: bladder lift with mesh MEALS [employer] WHE[employer] 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: , Spontaneous Musculoskeletal History: Reports: Arthritis, Back Pain, Chronic Neurological History: Reports: Migraines, Speech Problems Psychiatric History: Reports: Anxiety, Learning Disability Endocrine/Metabolic History: Reports: Diabetes, Type II, Obesity/BMI 30+ Hematologic History: Reports: None Immunologic History: Reports: None Oncologic (Cancer) History: Reports: None Dermatologic History: Reports: Other (See Below) Other Dermatologic History: herpes - Infectious Disease History Infectious Disease History: Reports: Herpes - Past Surgical History Head Surgeries/Procedures: Reports: None HEENT Surgical History: Reports: Oral Surgery Female Surgical History: Reports: D&C, Hysterectomy, Tubal Ligation Social & Family History - Family History Family Medical History: Noncontributory Cardiac: Reports: High Cholesterol, Hypertension Endocrine/Metabolic: Reports: Diabetes, type II Oncologic: Reports: Breast, Colon, Uterine - Tobacco Use Smoking Status *Q: Never Smoker Second Hand Smoke Exposure: No - Caffeine Use Caffeine Use: Reports: Coffee, Energy Drinks, Soda - Recreational Drug Use Recreational Drug Use: No - Living Situation & Occupation Living situation: Reports: (), with Family 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 Denies: Numbness, Tingling ED EXAM,LOWER BACK PAIN/INJURY - Physical Exam Exam: See Below General Appearance: Alert, Moderate Distress Head: Atraumatic Neck: Supple Respiratory/Chest: No Respiratory Distress Back Exam: Vertebral Tenderness (Very low lumbar spine and over the sacrococcygeal area), Other (No bruising or swelling visible) Extremities: Normal Inspection, Normal Range of Motion Neurological: Alert, No Motor/Sensory Deficits Skin Exam: Warm, Dry Course - Vital Signs Last Recorded V/S: Last Vital Signs Temp 97.2 F 04/12/19 15:59 Pulse 72 04/12/19 15:59 Resp 20 04/12/19 15:59 BP 170/151 H 04/12/19 15:59 Pulse Ox 100 04/12/19 15:59 - Re-Assessments/Exams Free Text/Narrative Re-Assessment/Exam: 04/12/19 18:05 I'm not going to re-x-ray her tailbone today. X-rays were just done 6 days ago. We'll start her on Naprosyn 500 mg twice a day and have her alternate Tylenol. I have written for 14 hydrocodone to use for severe pain if needed. Departure - Departure Time of Disposition: 16:47 Disposition: Home, Self-Care 01 Condition: Fair Clinical Impression: Fall, Coccyx contusion - Discharge Information Prescriptions: Acetaminophen/HYDROcodone [[place] 325-5 MG] 1 tab PO Q8HR PRN #14 tablet PRN Reason: Pain Naproxen [Naprosyn] 500 mg PO Q12HR #14 tab Instructions: Contusion, [id number] Referrals: Nadira Vogel PA-C [Primary Care Provider] - Forms: ED Department Discharge Additional Instructions: Naprosyn 500 mg twice daily, you may take tylenol in addition up to 3 times daily or hydrocodone up to 3 times daily if needed for severe pain. Prescriptions have been sent electronically to [facility] at the [employer] [facility]. Do not take tylenol and hydrocodone at the same time. Do not drive or work when taking hydrocodone. Ice packs alternating with heat as needed. Follow up with your regular medical provider as needed, follow up with Dr Killian as needed. Any further pain medication would need to be prescribed by your regular medical provider or Dr Killian. Sepsis Event Note - Evaluation Sepsis Screening Result: No Definite Risk - Focused Exam Vital Signs: Vital Signs Temp Pulse Resp BP Pulse Ox 04/12/19 15:59 97.2 F 72 20 170/151 H 100 Date Exam was Performed: 04/12/19 Time Exam was Performed: 18:04
== END 2019-04-12 17:09 | disposition home or self-care (01) ==
LOC: JD.ED 15:40
DX: S30.0XXA Contusion of lower back and pelvis, initial encounter (principal); E11.9 Type 2 diabetes mellitus without complications; M19.90 Unspecified osteoarthritis, unspecified site; F41.9 Anxiety disorder, unspecified; E66.9 Obesity, unspecified; Z79.899 Other long term (current) drug therapy; W01.0XXA Fall on same level from slipping, tripping and stumbling without subsequent striking against object, initial encounter
CPT/HCPCS: 99283